=== PATIENT | female | born 2000 | race Caucasian/White ===

== ENCOUNTER 2024-07-23 17:13 | Emergency (ER) | payer OTHER ==
[~2024-07-23] VITALS: Ht 167.6 cm; Wt 68.0 kg
[2024-07-23 17:19] VITALS: O2SAT 99
[2024-07-23 17:45] VITALS: TEMP 36.50292
[2024-07-23 18:01] VITALS: TEMP 97.7
[2024-07-23] MEDS: ONDANSETRON HCL 4MG/2ML INJ IV ONE (18:01)
[2024-07-23] MEDS: ACETAMINOPHEN 325MG TABLET PO ONE (18:01)
[2024-07-23] MEDS: LACTATED RINGERS 1,000 ML IV SCH (18:02)
[2024-07-23 18:14] LABS: BASOPHILS % 0.4 % (0.0-2.0); EOSINOPHILS % 0.3 % (0.0-5.0); HEMATOCRIT. 42.1 % (36.0-48.0); HEMOGLOBIN. 14.3 g/dL (12.0-16.0); LYMPHOCYTES % 16.7 % (20.0-50.0); MEAN CORPUSCULAR HEMOGLOBIN 30.3 pg (28.0-32.0); MEAN CORPUSCULAR HGB CONC 33.9 g/dL (31.0-37.0); MEAN CORPUSCULAR VOLUME 89.1 fL (81.0-99.0); MEAN PLATELET VOLUME 9.5 fl (7.4-10.4); MONOCYTES % 4.4 % (2.0-8.0); NEUTROPHILS % 78.2 % (40.0-76.0); PLATELET 144 x1000/uL (130-400); RED BLOOD CELL COUNT 4.73 mill/uL (4.2-5.4); RED CELL DISTRIBUTION WIDTH 12.5 % (11.6-14.6); WHITE BLOOD COUNT 9.2 x1000/uL (4.5-11.0)
[2024-07-23 18:15] LABS: CHLORIDE 107 mEq/L (98-107); SODIUM 139 mEq/L (136-145)
[2024-07-23 18:16] LABS: CALCIUM 9.4 mg/dL (8.7-10.4); CARBON DIOXIDE 21 mEq/L (21-32)
[2024-07-23 18:21] LABS: CREATININE 0.7 mg/dL (0.6-1.0); GLUCOSE 112 mg/dL (70-105); HCG SCREEN NEGATIVE; UREA NITROGEN BLOOD 6 mg/dL (9-23)
[2024-07-23 18:23] LABS: ALANINE AMINOTRANSFERASE 8 IU/L (10-49); ALBUMIN 4.7 g/dL (3.2-4.8); ASPARTATE AMINOTRANSFERASE 20 IU/L (<34); BILIRUBIN TOTAL 0.4 mg/dL (0.1-1.0); PROTEIN TOTAL 7.2 g/dL (6.0-8.3)
[2024-07-23] MEDS: METOCLOPRAMIDE HCL 10MG/2ML VIAL IV ONE (20:01)
[2024-07-23] MEDS: KETOROLAC 15MG/ML VIAL IV ONE (20:06)
[2024-07-23 20:32] VITALS: BP 101/65; PULSE 84; RESP 20; O2SAT 99
== END 2024-07-23 21:00 | disposition home or self-care (01) ==
LOC: ER 17:13
DX: R56.9 Unspecified convulsions (principal); R11.2 Nausea with vomiting, unspecified
CPT/HCPCS: 80053; 81025; 84703; 85025; 36415; 70450; 93005; 96361; 96374; 96375; 99285; J1885; J2765; J2405; Z7610